=== PATIENT | female | born 1950 | race Caucasian/White ===

== ENCOUNTER 2017-06-07 18:02 | Emergency (ER) | payer OTHER ==
[~2017-06-07 18:02] MED LIST: Propofol 200 MG/20 ML SDV IV ONE; Rocuronium 50 MG/5 ML Vial IV ONE
[2017-06-07] MEDS ORDERED: Ondansetron 4 MG/2 ML SDV IV ONE (18:18)
[2017-06-07] MEDS ORDERED: Ondansetron 4 MG/2 ML SDV ONE (18:19)
[2017-06-07] MEDS ORDERED: levETIRAcetam 500 MG/5 ML SDV ONE ×2 (18:49→18:50)
[2017-06-07] MEDS ORDERED: levETIRAcetam 1,000 MG in Sodium Chloride 0.9% 100 ML IV ONE (18:49)
--- NOTE | 2017-06-07 18:55 | EDM.PDOC ---
ED HPI GENERAL MEDICAL PROBLEM - General Stated Complaint: VOMITING,COMING BY AMBULANCE Time Seen by Provider: 06/07/17 18:10 Source of Information: Reports: EMS History Limitations: Reports: No Limitations - History of Present Illness INITIAL COMMENTS - FREE TEXT/NARRATIVE: This 67 yo female patient was brought to the ED by [facility] due to altered mentation , vomiting and head pain. Upon arrival in the ED, the patient was holding her head reporting increased pain in her head. The patient had told EMS that she felt like she was dying. EMS reports the patient has a history of a stroke. The patient was taken immediately to CT. Onset: Today, Sudden Duration: Minutes:, Constant Location: Reports: Head Severity: Severe Improves with: Reports: None Worsens with: Reports: None Associated Symptoms: Reports: Headaches, Nausea/Vomiting, Weakness (right side) ED ROS GENERAL - Review of Systems Review Of Systems: ROS reveals no pertinent complaints other than HPI. ED EXAM, NEURO - Physical Exam Exam: See Below Exam Limited By: No Limitations General Appearance: Alert, Severe Distress, Obese Eye Exam: Bilateral Eye: Abnormal Pupil (pupils were sluggish but reactive. ) Ears: Normal External Exam, Normal Canal, Hearing Grossly Normal, Normal TMs Nose: Normal Inspection, Normal Mucosa, No Blood Throat/Mouth: Normal Inspection, Normal Lips, Normal Teeth, Normal Gums, Normal Oropharynx, Normal Voice, No Airway Compromise Head Exam: Atraumatic, Normocephalic Neck: Normal Inspection, Supple, Non-Tender, Full Range of Motion Respiratory/Chest: No Respiratory Distress, Lungs Clear, Normal Breath Sounds, No Accessory Muscle Use, Chest Non-Tender Cardiovascular: Normal Peripheral Pulses, Bradycardia (after return from CT ), Tachycardia (initially) GI/Abdominal: Normal Bowel Sounds, Soft, Non-Tender, No Organomegaly, No Distention, No Abnormal Bruit, No Mass (Male) Exam: Deferred Rectal (Males) Exam: Deferred Neurological: Other (The patient was responding to questioning was able to move her left arm (good squeeze), and was able to move her feet on command. The patient was not able to move or squeeze with her right hand and could not open her right eye. ) Back Exam: Normal Inspection, Full Range of Motion, NT Extremities: Other Psychiatric: Other Skin Exam: Dry, Intact, Normal Color, No Rash, Cool Course - Orders/Labs/Meds Orders: Active Orders 24 hr Category Date Time Status Head wo Cont [CT] Routine Exams 06/07/17 18:17 Ordered Ondansetron [Zofran] Med 06/07/17 18:18 Once 4 mg IV ONETIME ONE Departure - Departure Time of Disposition: 19:04 Disposition: DC/Tfer to Acute Hospital 02 Condition: Critical Clinical Impression: Stroke, hemorrhagic - Discharge Information Forms: Interfacility Transfer EMTALA Care Plan Goals: Discussed the history, EMS report, examination, lab and CT results with Dr. Prescott ([facility] ED provider). Dr. Prescott accepted the patient for continued evaluation and management. The patient will be transported by [facility]. - My Orders Last 24 Hours: My Active Orders 06/07/17 18:17 Head wo Cont [CT] Routine 06/07/17 18:18 Ondansetron [Zofran] 4 mg IV ONETIME ONE - Assessment/Plan Last 24 Hours: My Active Orders 06/07/17 18:17 Head wo Cont [CT] Routine 06/07/17 18:18 Ondansetron [Zofran] 4 mg IV ONETIME ONE
[2017-06-07] MEDS ORDERED: Midazolam 1 MG/ML 2 ML SDV IVPUSH ONE (18:56)
[2017-06-07 18:57] LABS: CHLORIDE,CL 101 mmol/L (101-111); SODIUM,NA 137 mmol/L (135-145)
[2017-06-07] MEDS ORDERED: Midazolam 1 MG/ML 2 ML SDV ONE (18:57)
[2017-06-07] MEDS ORDERED: Potassium Chloride 10 MEQ in Premix Bag 1 BAG IV ONE (19:18)
--- NOTE | 2017-06-07 19:25 | PCM.PRNOTE ---
- Free Text/Narrative Note: Called in to ER at 18:29 and arrived at 18:38 for a code blue. Little history is available on patient who is unresponsive and suspected of having ruptured brain aneurysm. Patient had a brief episode of bradycardia that resolved quickly by the time of my arrival. ER Doctor requested sedation and securing the airway in preparation for air lifting the patient. BP 147/73, HR 57, SpO2 100% on non rebreather, RR 22. Induction with 100 mg of propofol and 50 mg of rocuronium, easy mask ventilation cricoid pressure is in place another 80 mg of propofol (total 180mg of propofol) given prior to intubation [id number], EtCO2 positive, Positive breath sounds bilateral. Tube secured at 21cm at teeth. vital sign after intubation is BP 194/76, HR 67, SpO2 100%. Versed 2 mg given IV to sedate the patient and another 50 mg of Rocuronium is given at the request of flight nurse. BP 123/81, HR 68, RR 18, SpO2 100% 100% FiO2 via ambubag. Care is turned over to the flight nurse at 19:10
[2017-06-07] MEDS ORDERED: diphenhydrAMINE 50 MG/ML SDV IVPUSH ONE (19:39)
--- NOTE | 2017-06-09 10:51 | EKG ---
06/07/2017- CAMRYN HUNT - EKG done on a 67-year-old female showing sinus rhythm, heart rate of 75 beats per minute. PVCs noted. Prolonged QT interval. ST depressions noted on V4 to V6. [facility] /[id number]
== END 2017-06-07 19:52 ==
LOC: EDBD → EDSEX → UNMERGE 18:02 → DL.ED 18:02 → MERGE 18:02 → DL.ED 19:52
DX: I62.9 Nontraumatic intracranial hemorrhage, unspecified (principal); E66.9 Obesity, unspecified
CPT/HCPCS: 31500; 36415; 51702; 70450; 71010; 80053; 80305; 81001; 83735; 84484; 85025; 85379; 85610; 93005; 93010; 96365; 96375; 96376; 99285; G0480; J1200; J1953; J2250; J2405; J2704; J3480; J7050